=== PATIENT | female | born 1965 | race African-American/Black ===

== ENCOUNTER 2017-01-26 20:25 | Emergency (ER) | payer OTHER | END 2017-01-27 01:42 | disposition home or self-care (01) | LOC: ER 20:25 | DX: S16.1XXA Strain of muscle, fascia and tendon at neck level, initial encounter (principal); I10 Essential (primary) hypertension; V44.5XXA Car driver injured in collision with heavy transport vehicle or bus in traffic accident, initial encounter | CPT/HCPCS: 72040; 72125; 96372; 99284; A9270-GY; J2360 ==